=== PATIENT | female | born 1990 | race Caucasian/White ===

== ENCOUNTER 2025-02-15 21:51 | Emergency (ER) | payer BC, MEDICAID, SELFPAY ==
--- OUTSIDE RECORDS SUMMARY | 2012-10-10 04:17 | XMS_ITS | Continuity of Care Document ---
Author Organization [facility] Address [address] [id number][place] [address] Phone Care Team Providers Care Coating Technician Name Role Phone Noelle Mike MD Unavailable Unavailable Allergies, Adverse Reactions, Alerts Substance Reaction Status Criticality MEPERIDINE HCL Tachycardia Active No Informatio n Medications Medication Instructions Dosage Effective Dates (start - stop) Status Comments Zantac 150 mg tablet take 1 tablet by or al route 2 times every day - Active Concept DHA 35 mg-1 mg-200 mg capsule take 1 capsule by oral route every day for - Active Procedures Procedure Date OB US >/= 14 WKS, SNGL FETUS OFFICE/OUTPATIENT VISIT, EST URINALYSIS AUTO W/O SCOPE (PP $5.50) Aug OFFICE/OUTPATIENT VISIT, EST URINALYSIS AUTO W/O SCOPE (PP $3.50) Jul OFFICE/OUTPATIENT VISIT, EST URINALYSIS AUTO W/O SCOPE (PP $3.50) Jun OFFICE/OUTPATIENT VISIT, NEW PAP IG (PP $31.25) URINALYSIS AUTO W/O SCOPE (PP $5.50) No CHYLMD TRACH DNA AMP PROBE N.GONORRHOEAE DNA AMP PROB ASSAY THYROID STIM HORMONE (PP $28.50) O BLOOD TYPING, ABO (PP $20) BLOOD TYPING, RH (D) (PP $20) 2 URINALYSIS AUTO W/O SCOPE (PP $5.50) Apr RBC ANTIBODY SCREEN (PP $10) URINE CULTURE/COLONY COUNT (PP $12) DRUG SCREEN SINGLE (PP $40) ASSAY OF URINE CREATININE (PP $8.75) Apr HEPATITIS B SURFACE AG EIA (PP $17.25) O HIV-1/HIV-2 SINGLE RESULT (PP $23.25) Oc COMPLETE CBC W/AUTO DIFF WBC (PP $13.25) BLOOD SEROLOGY, QUALITATIVE (PP $7.25) O RUBELLA ANTIBODY (PP $24.50) ROUTINE VENIPUNCTURE (PP $3.50) 012 URINE TEST (PP $10.75) 2011 Advance Directives Directive Yes / No Effective Date File Name No Information Encounters Encounter Description Practice Location Reason(s) For Visit Diagnoses Date Provider Providers Copied on Encounter [facility], [id number]- [place], [place], [id number], [place] tel:[phone] Family Medicine F1 No Information 3 Rashid Drake. [address], [place], [address], [place]. tel:[phone] OFFICE/OUTPA TIENT VISIT, EST [facility], [id number] 1117731[address]- [place], [address], [place] tel:[phone] [facility] F1 (chief complaint) Supervision of other normal pregnancyAntenata l screening for malformation using ultrasonics 3 Rashid Drake. [address], [place], [address], [place]. tel:[phone] Referring Provider: Noelle Mike, [address] [place], [address] . tel:[phone] [facility], [id number] 6165475MQ- [place], [place], [address], [place] tel:[phone] [place] [address] Supervision of other normal 3 Luehr Noelle. [address], [place], [address], [place]. tel:[phone] Referring Provider: Noelle Mike, [address] [place], [address] . tel:[phone] OFFICE/OUTPA TIENT VISIT, [facility], [id number] [place], [address], [place] tel:[phone] [place] [address] (chief complaint) Supervision of other normal 3 Luehr Noelle. [address], [place], [address], [place]. tel:[phone] Referring Provider: Noelle Mike, [address] [place], [address] . tel:[phone] [facility], [id number] [place] [address], [place] tel:[phone] [place] [address] Supervision of other normal 3 Anjelicaehdari Drake. [address], [place], [address], [place]. tel:[phone] Referring Provider: Noelle Mike, [address] [place], [address] . tel:[phone] OFFICE/OUTPA TIENT VISIT, [facility], [address] [place], [address], [place] tel:[phone] [place] [address] (chief complaint) Supervision of other normal 2 Luehr Noelle. [address], [place], [place], [address], [place]. [phone] Referring Provider: Noelle Mike, [address] [place], [address] . tel:[phone] [facility], [id number] 4295102LB- [place], [address], [place] tel:[phone] [place] [address] Supervision of other normal Jun- 0-201 2 Rashid Drake. [address], [place], [address], [place]. tel:[phone] Referring Provider: Noelle Mike, [address] [place], [address] . tel:[phone] OFFICE/OUTPA TIENT VISIT, [facility], [id number] 6653400DN- [place], [address], [place] tel:[phone] [place] [address] (chief complaint) Supervision of other normal 2 No Information [facility], [id number] [place], [address], [place] tel:[phone] [place] [address] Supervision of other normal 2 No Information [facility], [id number] 6747732DW- [place], [address], [place] tel:[phone] [place] [address] Supervision of other normal 2 No Information [facility], [id number] [place], [address], [place] tel:[phone] [place] [address] Supervision of other normal 2 No Information [facility], [id number] [place], [address], [place] tel:[phone] [place] [address] Supervision of other normal pregnancyUnspecif ied screeningOther specified viral diseases 2 No Information [facility], [id number] 6914598WJ- [place], [address], [place] tel:[phone] [place] [address] Unspecified screeningSupervis ion of other normal pregnancyOther specified viral diseases 2 No Information [facility], [id number] 8887909OZ- [place], [address], [place] tel:[phone] Family Medicine Absence of menstruation 2 Maggie Romero. [address], [place], [address], [place]. tel:[phone] Referring Provider: Nick Barajas, [address] [place], [address] . tel:[phone] [facility], [id number] 3207752EJ- [place], [address], [place] tel:[phone] Family Medicine Absence of menstruation 2 Maggie Romero. [address], [place], [address], [place]. tel:[phone] Referring Provider: Nick Barajas, [address] [place], [address] . tel:[phone] Family History Family Member Type Diagnosis Age At Onset No Information Payers Payer name Insurance type Covered constitution party ID Mason sheridan(nick) Jodie [place] Medicaid [id number] Social History Type Description Quantity Date Captured Comments Sex Female Smoking Status No Information Chief Complaint And Reason For Visit No Information Reason For Referral Reason For Referral No Information Plan Of Treatment Date Type Action Status Goal Tobacco cessation counseling completed Referral Ordered: OB US >/= 14 WKS, SNGL FETUS ordered History Of Present Illness Encounter Date Complaint History Of Prese nt Illness No Information Functional Status Date Functional Assessmen t No Information Instructions Date Instruction Additional Infor mation childbirth classes / hospital fa cilities Genetic screening HIV and other routine t ests risk factors identified by lucian thomas anticipated course of c are nutrition and weight gain bipin sorto, special diet toxoplasmosis precautions (cats / raw meat) indications for ultrasound influenza vaccine travel tobacco (ask, advise, assess, as sist and arrange) alcohol illicit / recreational drugs use of any medicatio ns (including supplements, vitamins, herbs, OTC drugs) smoking counseling seat belt use Assessments Type Assessment Date No Information Patient Care Teams Name Effective Dates (start - stop) Status Members No Information
[2025-02-15 22:01] VITALS: BP 146/86; PULSE 106; RESP 14; TEMP 36.7; O2SAT 99; BMI 26.9
--- OUTSIDE RECORDS SUMMARY | 2025-02-15 22:02 | XMS_ITS | Encounter Summary ---
Author Organization [facility] Address [address] [place] [address] Care Team Providers Care Chlorine Plant Operator Name Role Phone Lui Stephen MD Primary Care Provider [phone] Reason for Visit * Reason Comments Medication Assistance Encounter Details Date Type Department Care Team (Late st Contact Info) Description 01/13/2025 Telephone [facility] [place] [address] [address] Ila Tapia FNP [address] [address] Medication Assistance Social History Tobacco Use Types Packs/Day Years Used Date Smoking Tobacco: Every Day Cigarettes Smokeless Tobacco: Never Alcohol Use Standard Drinks/Week Comments No 0 (1 standard drink = 0.6 oz pur e alcohol) Comments No Sex and Gender Information Value Date Recorded Sex Assigned at Not on file 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 No answer. No voicemail or answering machine. Will continue to try to contact. If patient/caregiver calls back, contact center please inform per MICHAEL Peterson: They recommend notto crush these as it has the potential to affect how the dose is released but I am fine with her doing this. If her symptoms are not gone at the end of the antibiotic course just let us know and we will adjust then. Edna RN * Telephone Encounter - Edna Jiménez RN - 01/14/2025 2:19 PM CDT 01/14/2025 2:19 PM Returned call. No answer. No voicemail or answering machine. Will continue to try to contact. If patient/caregiver calls back, contact center please inform per MICHAEL Peterson: They recommend notto crush these as it has the potential to affect how the dose is released but I am fine with her doing this. If her symptoms are not gone at the end of the antibiotic course just let us know and we will adjust then. Edna RN * Telephone Encounter - Polly Tate LPN - 01/13/2025 1:49 PM CDT 01/13/2025 1:49 PM Returned call. No answer. No voicemail or answering machine. Will continue to try to contact. If patient/caregiver calls back, contact center please inform caller of provider recommendations. They recommend not to crush these as it has the potential to affect how the dose is released but I am fine with her doing this. If her symptoms are not gone at the end of the antibiotic course just let us know and we will adjust then. Polly MOORE * Telephone Encounter - Ila Tapia FNP - 01/13/2025 1:19 PM CDT They recommend not to crush these as it has the potential to affect how the dose is released but I am fine with her doing this. If her symptoms are not gone at the end of the antibiotic course just let us know and we will adjust then. * Telephone Encounter - Shawna Thomas - 01/13/2025 8:57 AM CDT Copied from [facility] #[id number]. Topic: Medication Request >> Jan 13, 2025 8:54 AM Shawna Feliciano wrote: Caller Name: Zoe Lock Callback Number: [phone] Medication (Ask patient/caregiver to spell if possible): amoxicillin-clavulanate (AUGMENTIN) 875-125 mg [id number]/ Sig: Take 1 Tablet by mouth every 12 hours for 7 days. Class: E-Prescribe Route: Oral Note: All medication prescriptions can be requested using one CRM Caller is requesting: Medication Question from Patient (not involving new prescription or refill) Preferred Pharmacy: [id number] - [place], [place] - [address] [facility] [address] [facility] [address] [facility] [address] Hours: Not open 24 hours Call Notes: Caller has question about Patient was prescribed the amoxicillin, the pills that they gave her were too big so the patient chopped up the pill and ate with yogurt. Patient was advised that she is not supposed to chopped up and would like to get the providers opinion about this because as she read up on it when you chop up the amoxicillin it does not disperse throughout the body like it should if swallowing the pills whole. Is there an encounter open? No documented in this encounter Plan of Treatment Not on file documented as of this encounter Visit Diagnoses Not on filedocumented in this encounter Care Teams Chlorine Plant Operator Relationship Specialty Start Date End Date Lui Stephen MD [address] [phone] PCP - General Family Practice 01/12/25 documented as of this encounter
--- OUTSIDE RECORDS SUMMARY | 2025-02-15 22:02 | XMS_ITS | Clinical Summary ---
Author Organization [facility] Address [facility] [place] [address] Phone Care Team Providers Care Anchor Tack Puller Name Role Phone Brianna Salasorah Jenn COLÓN Primary Care Provider Allergies Active Allergy Reactions Criticality Noted Date Comments Benadryl Decongestant Nausea and Vomiting Medium 01/09 Meperidine Anaphylaxis High 10/13/2012 Medications fluticasone propionate (FLONASE) 50 mcg/spray [place], Suspension nasal inhalerIndicati ons:Allergic sinusitis Administer 2 Sprays in each nostril daily. 16 Gram 0 Active ciprofloxacin-h ydrocortisone (CIPRO HC) 0.2-1 % Drops, SuspensionIndic ations:Middle ear effusion, right Administer 3 Drops in right ear 2 times daily. 10 mL 0 Active Active Problems Problem Noted Date Diagnosed Date S/P tubal ligation 02/10/2013 Tobacco abuse 10/13/2012 Screening for cervical cancer 10/13/2012 Overview (10/13/2012): Normal pap 05/2012 Resolved Problems Problem Noted Date Diagnosed Date Resolved Date Tubal ligation evaluation 11/04/2012 GERD (gastroesophageal reflux disease) 10/13/2012 02/10/2013 Supervision of other normal 10/13/2012 02/10/2013 Immunizations Immunization Administration Dates Next Due (ADACEL/BOOSTRIX)(10 YR UP) TDAP VACCINE, 0.5ML, IM 11/04/2012 Family History Medical History Relation Name Comments Heart Disease Father Heart Disease Paternal Grandfather Relation Name Status Comments Father Alive Mother Alive Paternal Grandfather Social History Tobacco Use Types Packs/Day Years Used Date Smoking Tobacco: Every Day Cigarettes 0.5 7 Smokeless Tobacco: Never Tobacco Cessation:Ready to Q uit: No Alcohol Use Standard Drinks/Week Comments No 0 (1 standard drink = 0.6 oz pur e alcohol) Comments No Sex and Gender Information Value Date Recorded Sex Assigned at Not on file 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 Gender Identity Not on file Sexual Orientation Not on file Occupation Industry Job Start Date Job End Date Not on file Not on file Not on file Not on file Last Filed Vital Signs Vital Sign Reading Time Taken Comments Blood Pressure 107/66 01/10/2021 12:09 AM CDT Pulse 65 01/10/2021 12:09 AM CDT Temperature 36.8 C (98.3 F) 01/10/2021 12:09 AM CDT Respiratory Rate 18 01/10/2021 12:09 AM CDT Oxygen Saturation 97% 01/10/2021 12:09 AM CDT Inhaled Oxygen Concentration - - Weight 72.1 kg (159 lb) 01/09/2021 9:06 PM CDT Height 157.5 cm (5' 2 ) 01/09/2021 9:06 PM CDT Body Mass Index 29.08 01/09/2021 9:06 PM CDT Plan of Treatment Health Maintenance Due Date Last Done Comments Pre-Diabetes and Diabetes Screening 1989 HPV VACCINES (1 - 3-dose series) 2004 HEPATITIS B VACCINES (1 of 3 - 19+ 3-dose series) 02/2008 HPV/Cotest (21-29) 2010 CERVICAL CANCER SCREENING 2019 HPV/Cotest (30-65) 2019 PAP SMEAR 2019 DTAP/TDAP/TD VACCINES (2 - Td or Tdap) 11/04/2022 Preventative Visit-Managed Medicaid 07/12/202407/11 INFLUENZA VACCINE (#1) 2025 Insurance MEDICAID [place] Care Teams Anchor Tack Puller Relationship Specialty Start Date End Date Lidya Salas DO [address] [place] [address] PCP - General Family Practice 10/20/18
--- OUTSIDE RECORDS SUMMARY | 2025-02-15 22:02 | XMS_ITS | Clinical Summary ---
Author Organization [facility] Address [address] [place] [address] Phone Care Team Providers Care Cafe Operator Name Role Phone Lui Stephen MD Primary Care Provider [phone] Allergies Active Allergy Reactions Criticality Noted Date Comments Benadryl Decongestant Nausea and Vomiting Medium 01/09 Iodinated Contrast Media Palpitations Low Meperidine Anaphylaxis High 10/13/2012 Nyquil Liquicaps Dizziness Low 03/13/2021 Medications amoxicillin-clavu lanate (AUGMENTIN) 875-125 mg tabletIndications :Subacute pansinusitis Take 1 Tablet by mouth every 12 hours for 7 days. 14 Tablet 5 01/20/20 25 Active Problems Problem Noted Date Diagnosed Date S/P tubal ligation 02/10/2013 Tobacco abuse 10/13/2012 Screening for cervical cancer 10/13/2012 Overview (11/24/2020): Normal pap 05/2012 Resolved Problems Problem Noted Date Diagnosed Date Resolved Date Tubal ligation evaluation 11/04/2012 GERD (gastroesophageal reflux disease) 10/13/2012 02/10/2013 Supervision of other normal 10/13/2012 02/10/2013 Encounters Date Type Department Care Team Description 01/26/2025 External Device Data [facility] ABSTRACTION Provider, Abstract 01/13/[address] [phone] Lui Stephen MD Medication Question 01/13/[address] [place] [address] Ila Tapia FNP Medication Assistance 01/12/2025 12:40 PM CDT Office Visit [address] [address] Ila Tapia FNP Subacute pansinusitis (Primary Dx); Acute cough; Body aches 01/12/2025 External Device Data [facility] ABSTRACTION Provider, Abstract 12/29/2024 External Device Data [facility] [place] Provider, Abstract 12/22/2024 External Device Data [facility] [place] Provider, Abstract 12/17/2024 External Device Data [facility] [place] Provider, Abstract 12/16/2024 External Device Data [facility] [place] Provider, Abstract 12/01/2024 External Device Data [facility]STRACTION Provider, Abstract from Last 3 Months Immunizations Immunization Administration Dates Next Due (ADACEL/BOOSTRIX)(10 YR UP) TDAP VACCINE, 0.5ML, IM 11/04/2012 Hepatitis B Vaccine 12/04/2001 Hepatitis B Vaccine, Adolesc ent/High Risk Dosage 07/02/2001,06/04/2001 Family History Medical History Relation Name Comments Heart Disease Father Cancer Mother Heart Disease Paternal Grandfather Relation Name Status Comments Father Alive Mother Alive Paternal Grandfather Social History Tobacco Use Types Packs/Day Years Used Date Smoking Tobacco: Every Day Cigarettes Smokeless Tobacco: Never Tobacco Cessation:Ready to Q uit: No; Counseling Given: Yes Alcohol Use Standard Drinks/Week Comments No 0 (1 standard drink = 0.6 oz pur e alcohol) Comments No Sex and Gender Information Value Date Recorded Sex Assigned at Not on file 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 Gender Identity Not on file Sexual Orientation Not on file Last Filed Vital Signs Vital Sign Reading Time Taken Comments Blood Pressure 126/80 01/12/2025 12:37 PM CDT Pulse 76 01/12/2025 12:33 PM CDT Temperature 37 C (98.6 F) 01/12/2025 12:33 PM CDT Respiratory Rate 18 01/12/2025 12:33 PM CDT Oxygen Saturation 98% 01/12/2025 12:33 PM CDT Inhaled Oxygen Concentration - - Weight 64.4 kg (142 lb) 01/12/2025 12:33 PM CDT Height 157.5 cm (5' 2 ) 01/12/2025 12:33 PM CDT Body Mass Index 25.97 01/12/2025 12:33 PM CDT Plan of Treatment Health Maintenance Due Date Last Done Comments Pre-Diabetes and Diabetes Screening 1989 HPV VACCINES (1 - 3-dose series) 2004 DTAP/TDAP/TD VACCINES (2 - T d or Tdap) 11/04/2022 11/04/2012 Preventative Visit-Managed Medicaid 07/12/202407/11 INFLUENZA VACCINE (#1) 2025 07/11/2023 PAP SMEAR 07/11/2026 07/11/2023 CERVICAL CANCER SCREENING 07/11/2028 HPV/Cotest (21-29) 07/11/2028 07/11/2023 HPV/Cotest (30-65) 07/11/2028 07/11/2023 HEPATITIS B VACCINES Completed 12/04/2001, 07/02/2001, 06/04/2001 Procedures Procedure Name Priority Date/Time Associated Diagnosis Comments POC INFLUENZA A/B AND COVID-19 ANTIGENS Routine 01/12/2025 12:56 PM CDT Acute cough Body aches CERV/VAG CYTO AGE BASED SCREEN PAP Routine 07/11/2023 9:53 AM REAL ESTATE AGENT Well woman exam with routine gynecological exam from Last 3 Months or Most Recently Relevant to Health Maintenance Results * POC INFLUENZA A/B AND COVID-19 ANTIGENS (01/12/2025 12:56 PM CDT) INFLUENZA A AG POC Not Detected Not Detected [facility] INFLUENZA B AG POC Not Detected Not Detected [facility] COVID-19 ANTIGEN POC Presumptively Negative Presumptively Negative [facility] INTERNAL KIT QC POC Pass Pass [facility] KIT LOT NUMBER POC [id number] [facility] KIT EXP DATE POC 03/16/2025 [facility] Upper Respiratory 01/12/2025 12:56 PM CDT Ila Tapia CAR TRACER POINT OF CARE TESTING Fi nal Result [facility] CLIA# [id number] [address] [place] [address] * CERV/VAG CYTO AGE BASED SCREEN PAP (07/11/2023 9:53 AM REAL ESTATE AGENT) COMMENT (PAP): [facility] [place] Comment: This order for age-based cervical cancer and STI screening follows ACOG guidelines(PB 168, 140, VLZ409). See individual assays for performing site location. CLINICAL INFORMATION [facility] [place] Comment:Routine exam LAST MENSTRUAL PERIOD [facility] Comment:06/28/2023 06/24/2023 PREV PAP: [facility] [place] Comment:APPROX 10 YEARS NEG PREV BX: [facility] [place] Comment:NONE GIVEN SOURCE [facility] [place] Comment:Endocervix ADEQUACY: [facility] [place] Comment: Satisfactory for evaluation. Endocervical/transformation zone component present. Age and/or menstrual status not provided PAP INTERP [facility] [place] Comment: Cytology Results: Negative for intraepithelial lesion or malignancy. COMMENT (PAP TEST) [facility] Comment: This Pap test has been evaluated with computer assisted technology. FLIGHT STEWARD: Maddi Vinson Comment: JAF, CT(ASCP) CT Screening Location: [place] [address] Vyas [place] [address] REVIEW FLIGHT STEWARD: Lisa Vinson Comment: MVB, CT(ASCP) CT Screening Location: [place] [address] Vyas [facility] EXPLANATORY NOTE Que st Wendy Vinson Comment: EXPLANATORY NOTE: The Pap is a screening test for cervical cancer. It is not a diagnostic test and is subject to false negative and false positive results. It is most reliable when a satisfactory sample, regularly obtained, is submitted with relevant clinical findings and history, and when the Pap result is evaluated along with historic and current clinical information. HPV E6/E7 Not Detected Not Detected Lisa Vinson Comment: Methodology: Literacy Coach-Mediated Amplification This assay detects E6/E7 viral messenger RNA (mRNA) from 14 high-risk HPV types (16,18,31,33,35,39,45,51,52,56,58,59,66,68). Cervical sources are required for HPV testing. If a vaginal source from a patient who has had a total hysterectomy with removal of cervix was submitted, please contact the testing laboratory for alternative testing options. For additional information, please refer to http://education.Yardsale/faq/HMY655i9 (This link if provided for information/ educational purposes only.) CYTOTECH ENTER DVCIN INTO COMMENTS FIELD Test Performed at: [facility] [facility] [address] [address] Leyda GARCÍA Genital SWAB OF ENDOCERVIX / Unknown 07/11/2023 9:53 AM REAL ESTATE AGENT 07/12/2023 3:04 AM REAL ESTATE AGENT lIa SESAYP PATHOLOGY/CYTOLOGY ORDER ANGELES Final Result [facility] [phone] [facility] [address] [address] [id number] from Last 3 Months or Most Recently Relevant to Health Maintenance Insurance [facility] MEDICAID Care Teams Cafe Operator Relationship Specialty Start Date End Date Lui Stephen MD [address] [phone] PCP - General Family Practice 01/12/25
--- NOTE | 2025-02-15 22:52 | ED_ITS ---
HPI - Wound/Laceration General: Chief Complaint: Wound/Laceration Stated Complaint: Rt Ear Pain Time Seen by Provider: 02/15/25 22:52 History of Present Illness: 34-year-old female presents emergency ro om with complaint of right ear pain. She has mild headache as well. She is noticed a couple lumps behind her right ear. Associated symptoms: Denies chills or fever(s) Related Data Allergies Allergy/AdvReac Type Severity Reaction Status Date / Time acetaminophen (From NyQuil) Allergy Unknown Verified 02/15/25 22:06 dextromethorphan (From Allergy Unknown Verified 02/15/25 22:06 NyQuil) doxylamine (From NyQuil) Allergy Unknown Verified 02/15/25 22:06 Iodinated Contrast Media Allergy chest Verified 02/15/25 22:06 heaviness, heat meperidine (From Demerol) Allergy Unknown Verified 02/15/25 22:06 pseudoephedrine (From NyQuil) Allergy Unknown Verified 02/15/25 22:06 Review of Systems Const: Denies: fever(s) or chills Card: Denies: chest pain Resp: Denies: dyspnea GI: Denies: abdominal pain : Denies: dysuria, urinary frequency or urinary urgency Musc: Denies: neck pain or back pain Skin/Breast: Denies: rash Physical Exam Const: COMMON NORMALS: no acute distress GENERAL APPEARANCE: cooperative and comfortable ORIENTATION/CONSCIOUSNESS: Yes awake, Yes oriented to person, Yes oriented to place and Yes oriented to time HENMT: COMMON NORMALS: normocephalic, atraumatic, hearing grossly normal bilaterally, external ears normal, EAC's normal, TM's normal bilaterally and Normal nasal mucous membranes and turbinates present HEAD & SCALP: normocephalic and atraumatic NOSE: Normal nasal mucous membranes and turbinates present EXTERNAL EAR: Yes external ears normal EXTERNAL AUDITORY CANAL: EAC's normal TYMPANIC MEMBRANE: TM's normal bilaterally OTHER: No cervical lymphadenopathy Poor dentition Eye: COMMON NORMALS: Equal, round and reactive pupils present, EOMs intact bilaterally, conjunctivae normal and no scleral icterus CONJUNCTIVA: Yes conjunctivae normal PUPIL: Yes Equal, round and reactive pupils present Neck/C-Spine: COMMON NORMALS: full ROM, no lymphadenopathy, supple and no JVD Resp: COMMON NORMALS: normal respiratory effort, No retractions, No use of accessory muscles and clear to auscultation bilaterally AUSCULTATION: clear to auscultation bilaterally Cardio: COMMON NORMALS: no JVD, regular rate, regular rhythm and No murmurs present (Cardio) RATE: regular rate RHYTHM: regular rhythm Extremity: COMMON NORMALS: normal to inspection, capillary refill normal, no clubbing, cyanosis or edema, no calf tenderness and no pedal edema Neuro: SENSORIUM/ORIENTATION: Yes oriented to person, Yes oriented to place a nd Yes oriented to time Skin: COMMON NORMALS: no rashes or lesions noted GENERAL SKIN EXAM: no rashes or lesions noted Course Vital Signs: Vital signs: Vital Signs Temperature 98.0 F 02/15/25 22:01 Pulse Rate 106 H 02/15/25 22:01 Respiratory Rate 14 02/15/25 22:01 Blood Pressure 146/86 02/15/25 22:01 Pulse Oximetry 99 02/15/25 22:01 Oxygen Delivery Me thod Room Air 02/15/25 22:01 MDM - Wound/Laceration Medical Decision Making Her ear exam is normal suspect her pain is referred pain from dental. She does have some discomfort preauricular and in the mandibular area on that right side but no lymphadenopathy no gum swelling the digitation in that area is very poor. Will start her on Augmentin. Twice daily for 10 days encouraged to follow-up with her dentist return if she has worsening or changes symptoms No radiology studies performed this visit Discharge Plan Discharge Patient Disposition: Home Clinical Impression: Dental infection, Otalgia Condition: Stable Discharge Orders: Discharge ED (Routine); Ordered 02/15/25 Ordered By: Dillon Sawyer Referrals: Lidya Salas DO [Primary Care Provider, Family Practice] Patient Instructions: Opioid Safety, Pain Management, Patient Portal & [place] Instructions Activity Restrictions/Additional Instructions: [facility] you [facility] needs today. It is very important that you follow up as instructed or that you return to the Emergency Department should you have concerns or if your condition changes or worsens in any way. You are seen in the emergency room with complaint of ear pain lymph nodes. Suspect this may be due to a dental infection we will start you on some oral antibiotics for 10 days. If your symptoms worsen or change recheck with primary care doctor Print Language: Andorran Coding Level of Care Code ED Post Closing Specialist for Chg Fwd
== END 2025-02-15 23:09 | disposition home or self-care (01) ==
PROVIDERS: Emergency Provider Family Medicine; PCP Family Medicine
DX: K04.7 Periapical abscess without sinus (principal); H92.01 Otalgia, right ear
CPT/HCPCS: 99283